=== PATIENT | male | born 2000 | race Caucasian/White ===

== ENCOUNTER → 2019-09-12 | Emergency (ER) | payer OTHER ==
[~2019-09-12] VITALS: Ht 180.3 cm; Wt 95.3 kg
== END | disposition left against medical advice (07) ==
LOC: ER 11:54
DX: I15.8 Other secondary hypertension (principal); T51.0X1A Toxic effect of ethanol, accidental (unintentional), initial encounter; T40.5X1A Poisoning by cocaine, accidental (unintentional), initial encounter; T40.7X1A Poisoning by cannabis (derivatives), accidental (unintentional), initial encounter; Y92.89 Other specified places as the place of occurrence of the external cause